=== PATIENT | female | born 1990 | race Caucasian/White ===

== ENCOUNTER 2019-07-02 16:19 | Emergency (ER) | payer SELFPAY ==
--- NOTE | 2019-07-02 20:12 | Event Note ---
ED Screening Note Date of service: 07/02/19 Time: 20:08 ED Screening Note: This is a 28 y.o. F. that presents to the ER with lower abdominal pain and vaginal discharge that started today. Patient is 11 weeks . RODEO RIDER about 07/20/19. LMP 04/12/2019, A2 miscarriage Denies vaginal bleeding, UTI symptoms, or back pain This initial assessment/diagnostic orders/clinical plan/treatment(s) is/are subject to change based on patients health status, clinical progression and re-assessment by fellow clinical providers in the ED. Further treatment and workup at subsequent clinical providers discretion. Patient/guardian urged not to elope from the ED as their condition may be serious if not clinically assessed and managed. Initial orders include: Labs OB US
[2019-07-02 21:19] LABS: Bilirubin,Urine NEG (Negative); Blood,Urine NEG (Negative); Color,Urine Yellow (Yellow); Mucus,Urine 1+ /HPF; Protein,Urine <15 mg/dL mg/dL (Negative)
[2019-07-02 21:20] LABS: HCG Qualitative,Urine Negative (Negative); WBC,Urine < 1.0 /HPF (0.0-6.0)
--- NOTE | 2019-07-02 21:22 | Ultrasound Report ---
US OB <= 14 weeks fetus INDICATION / CLINICAL INFORMATION: lower abdominal pain, 11 weeks . COMPARISON: None available. FINDINGS: Single, viable intrauterine , heart rate 160. [place]-rump length measures 42 mm, corresponding to a gestational age of 11 weeks 1 day Both ovaries appear unremarkable. No free fluid. IMPRESSION: 1. Single, viable 11 week 1 day intrauterine . Signer Name: Arben Enriquez MD Signed: 07/02/2019 9:18 PM Workstation Name: [id number]
[2019-07-02] MEDS ORDERED: ONDANSETRON 4 MG/2 ML INJ IV ONE (22:11)
[2019-07-02] MEDS ORDERED: ACETAMINOPHEN 500 MG TAB PO ONE (22:11)
[2019-07-02] MEDS ORDERED: SODIUM CHLORIDE 0.9% 1000 ML 1,000 ML IV ONE (22:11)
--- NOTE | 2019-07-02 22:14 | Emergency Department Report ---
ED Female HPI - General Chief complaint: Abdominal Pain Stated complaint: 11 WEEKS PREG/CRAMPING Time Seen by Provider: 07/02/19 20:08 Source: patient Mode of arrival: Ambulatory Limitations: No Limitations - History of Present Illness Initial comments: pt is a 28-year-old female presents emergency room with complaints of suprapubic abdominal cramping that began at 3 AM this morning. Patient states she is currently 11 weeks . States that she has nausea and a couple episodes of vomiting in the morning which she has had throughout her . She denies any change in frequency or duration of the nausea and vomiting. She is able to tolerate by mouth intake. She denies any vaginal bleeding, abnormal vaginal discharge, diarrhea, fever, urinary symptoms, vaginal itching, vaginal burning. She states that she has her first appointment with an MENTAL HEALTH COUNSELOR on July 20. She states she is currently taking a vitamin. She denies any past medical history or allergies medications. - Related Data Previous Rx's Medication Instructions Recorded Last Taken Type Acetaminophen [Acetaminophen ER 650 mg PO Q8HR PRN #14 tablet.er 07/02/19 Unknown Rx TAB] Ondansetron [Zofran Odt] 4 mg PO Q8HR PRN #7 tab.rapdis 07/02/19 Unknown Rx Allergies Allergy/AdvReac Type Severity Reaction Status Date / Time No Known Allergies Allergy Unverified 07/02/19 16:24 ED Review of Systems ROS: Stated complaint: 11 WEEKS PREG/CRAMPING Other details as noted in HPI Comment: All other systems reviewed and negative ED Past Medical Hx - Past Medical History Previous Medical History?: No - Surgical History Past Surgical History?: Yes Additional Surgical History: C section - Social History Smoking Status: Never Smoker Substance Use Type: None - Medications Home Medications: Home Medications Medication Instructions Recorded Confirmed Last Taken Type Acetaminophen [Acetaminophen ER 650 mg PO Q8HR PRN #14 tablet.er 07/02/19 Unknown Rx TAB] Ondansetron [Zofran Odt] 4 mg PO Q8HR PRN #7 tab.rapdis 07/02/19 Unknown Rx ED Physical Exam - General Limitations: No Limitations General appearance: alert, in no apparent distress - Head Head exam: Present: atraumatic, normocephalic - Eye Eye exam: Present: normal appearance - ENT ENT exam: Present: normal orophraynx, mucous membranes moist, other (cracked tooth in half present on the right lower jaw, no induration, no fluctuance, no facial swelling, uvula is midline, no uvular edema) - Respiratory Respiratory exam: Present: normal lung sounds bilaterally. Absent: respiratory distress, wheezes, rales, rhonchi, stridor, chest wall tenderness, accessory muscle use, decreased breath sounds, prolonged expiratory - Cardiovascular Cardiovascular Exam: Present: regular rate, normal rhythm, normal heart sounds. Absent: systolic murmur, diastolic murmur, rubs, gallop - GI/Abdominal GI/Abdominal exam: Present: soft, normal bowel sounds. Absent: distended, tenderness, guarding, rebound, rigid - Back Exam Back exam: Absent: CVA tenderness (R), CVA tenderness (L) - Neurological Exam Neurological exam: Present: alert, oriented X3 - Psychiatric Psychiatric exam: Present: normal affect, normal mood - Skin Skin exam: Present: warm, dry, intact ED Course Vital Signs 07/02/19 07/02/19 07/02/19 20:07 22:31 23:30 Temperature 97.7 F Pulse Rate 95 H Respiratory 18 17 173 H Rate Blood Pressure 140/78 Blood Pressure [Left] O2 Sat by Pulse 100 100 Oximetry 07/03/19 00:00 Temperature 98.5 F Pulse Rate 76 Respiratory 18 Rate Blood Pressure Blood Pressure 128/78 [Left] O2 Sat by Pulse 100 Oximetry ED Medical Decision Making - Radiology Data Radiology results: report reviewed US OB <= 14 weeks fetus INDICATION / CLINICAL INFORMATION: lower abdominal pain, 11 weeks . COMPARISON: None available. FINDINGS: Single, viable intrauterine , heart rate 160. [place]-rump length measures 42 mm, corresponding to a gestational age of 11 weeks 1 day Both ovaries appear unremarkable. No free fluid. IMPRESSION: 1. Single, viable 11 week 1 day intrauterine . Signer Name: Arben Enriquez MD Signed: 07/02/2019 9:18 PM Workstation Name: [id number] Transcribed By: TM Dictated By: Arben Enriquez MD Electronically Authenticated By: Arben Enriquez MD Signed Date/Time: 07/02/192117 - Medical Decision Making pt is a 28-year-old female presents emergency room with complaints of suprapubic abdominal cramping that began at 3 AM this morning. Patient states she is cur rently 11 weeks . States that she has nausea and a couple episodes of vomiting in the morning which she has had throughout her . She denies any change in frequency or duration of the nausea and vomiting. She is able to tolerate by mouth intake. She denies any vaginal bleeding, abnormal vaginal discharge, diarrhea, fever, urinary symptoms, vaginal itching, vaginal burning. She states that she has her first appointment with an MENTAL HEALTH COUNSELOR on July 20. She states she is currently taking a vitamin. She denies any past medical history or allergies medications. VSS. on exam: No abdominal tenderness or CVA tenderness. UA without evidence of UTI. OB US shows: 1. Single, viable 11 week 1 day intrauterine . Patient given IV fluids, Tylenol, Zofran and patient states that she was feeling much better. Patient states that she has also had a left lower toothache for a couple months. on exam: cracked tooth in half present on the right lower jaw, no induration, no fluctuance, no facial swelling, uvula is midline, no uvular edema, no signs of dental abscess, advised patient to see a dentist, discussed with patient that she can take Tylenol [id number] for discomfort. Patient given prescription for Tylenol and Zofran to take as needed. advised pt to please take medication as prescribed as needed. Increase your water intake over the next several days. Please continue taking your vitamin [id number]. Follow-up with an MENTAL HEALTH COUNSELOR in the next 2-3 days. Return to the emergency room for any new or worsening symptoms. - Differential Diagnosis IUP, ectopic, UTI, placenta abruption, subchorionic hemorrhage Critical care attestation.: If time is entered above; I have spent that time in minutes in the direct care of this critically ill patient, excluding procedure time. ED Disposition Clinical Impression: Suprapubic cramping, Morning sickness, Toothache, Cracked tooth Disposition: -01 TO HOME OR SELFCARE Is pt being admited?: No Does the pt Need Aspirin: No Condition: Stable Instructions: Morning Sickness (ED), Abdominal Pain in (ED), Toothache (ED) Additional Instructions: Please take medication as prescribed as needed. Increase your water intake over the next several days. Please continue taking your vitamin [id number]. Follow-up with an MENTAL HEALTH COUNSELOR in the next 2-3 days. Return to the emergency room for any new or worsening symptoms. Prescriptions: Acetaminophen [Acetaminophen ER TAB] 650 mg PO Q8HR PRN #14 tablet.er PRN Reason: pain Ondansetron [Zofran Odt] 4 mg PO Q8HR PRN #7 tab.rapdis PRN Reason: Nausea And Vomiting Referrals: SHANDRA BIRD MD [Staff Physician] - 2-3 Days [facility] [Provider Group] - 2-3 Days Time of Disposition: 23:23 Print Language: ITALIAN
[2019-07-03 00:50] VITALS: BP 128/78
== END 2019-07-03 | disposition home or self-care (01) ==
LOC: ED 16:19
DX: R10.9 Unspecified abdominal pain (principal); O21.8 Other vomiting complicating pregnancy; O26.891 Other specified pregnancy related conditions, first trimester; K08.89 Other specified disorders of teeth and supporting structures; K03.81 Cracked tooth; Z98.890 Other specified postprocedural states; Z79.899 Other long term (current) drug therapy; Z3A.11 11 weeks gestation of pregnancy
CPT/HCPCS: 36415; 76801; 81001; 81025; 84702; 96361; 96374; 99284; J2405; J7030

== ENCOUNTER 2019-07-08 21:33 | Emergency (ER) | payer SELFPAY ==
--- NOTE | 2019-07-08 21:48 | Event Note ---
ED Screening Note ED Screening Note: vaginal bleeding began today no abd pain no N/v/D no fever 12 weeks /P:2/A:2 PMHx none no allergies to meds This initial assessment/diagnostic orders/clinical plan/treatment(s) is/are subject to change based on patients health status, clinical progression and re- assessment by fellow clinical providers in the ED. Further treatment and workup at subsequent clinical providers discretion. Patient/guardian urged not to elope from the ED as their condition may be serious if not clinically assessed and managed. Initial orders include: labs, UA, US OB
--- NOTE | 2019-07-08 22:22 | Emergency Department Report ---
ED Female HPI - General Chief complaint: Vaginal Bleeding Stated complaint: VAGINAL BLEEDING, 11 WEKS PREG Time Seen by Provider: 07/08/19 21:47 Source: patient Mode of arrival: Ambulatory Limitations: No Limitations - History of Present Illness Initial comments: Mrs. Martinez is a very pleasant 28-year-old female who is currently 12 weeks 3 days according to estimated due date 01/17/2020. She has been receiving regular care at outside clinic. She's had a normal ultrasound during this . 30 minutes prior to arrival she developed vaginal spotting with mild pelvic pressure. She's had 2 previous miscarriages. Sudden onset of symptoms noticed while she was taking shower. Denies fever. Denies abdominal pain. Denies vomiting. MD Complaint: vaginal bleeding -: Sudden, minutes(s) (30) Severity: mild Severity scale (0 -10): 3 Quality: other (pelvic pressure) Consistency: constant Improves with: none Worsens with: none Are you Now?: Yes Associated Symptoms: denies other symptoms - Related Data Previous Rx's Medication Instructions Recorded Last Taken Type Acetaminophen [Acetaminophen ER 650 mg PO Q8HR PRN #14 tablet.er 07/02/19 Unknown Rx TAB] Ondansetron [Zofran Odt] 4 mg PO Q8HR PRN #7 tab.rapdis 07/02/19 Unknown Rx Allergies Allergy/AdvReac Type Severity Reaction Status Date / Time No Known Allergies Allergy Unverified 07/02/19 16:24 ED Review of Systems ROS: Stated complaint: VAGINAL BLEEDING, 11 WEKS PREG Other details as noted in HPI Comment: All other systems reviewed and negative Constitutional: denies: fever, malaise Gastrointestinal: denies: abdominal pain, nausea, vomiting Genitourinary: other (vaginal spotting) Musculoskeletal: denies: back pain ED Past Medical Hx - Past Medical History Previous Medical History?: No - Surgical History Past Surgical History?: Yes Additional Surgical History: C section X 2 - Social History Smoking Status: Never Smoker Substance Use Type: None - Medications Home Medications: Home Medications Medication Instructions Recorded Confirmed Last Taken Type Acetaminophen [Acetaminophen ER 650 mg PO Q8HR PRN #14 tablet.er 07/02/19 Unknown Rx TAB] Ondansetron [Zofran Odt] 4 mg PO Q8HR PRN #7 tab.rapdis 07/02/19 Unknown Rx ED Physical Exam - General Limitations: No Limitations General appearance: alert, in no apparent distress - Head Head exam: Present: atraumatic, normocephalic - Eye Eye exam: Present: normal appearance - ENT ENT exam: Present: mucous membranes moist - Neck Neck exam: Present: normal inspection, full ROM - Respiratory Respiratory exam: Present: normal lung sounds bilaterally. Absent: respiratory distress, wheezes, rales, rhonchi - Cardiovascular Cardiovascular Exam: Present: regular rate, normal rhythm, normal heart sounds. Absent: systolic murmur, diastolic murmur, rubs, gallop - GI/Abdominal GI/Abdominal exam: Present: soft, normal bowel sounds. Absent: distended, te nderness, guarding, rebound - Extremities Exam Extremities exam: Present: normal inspection - Neurological Exam Neurological exam: Present: alert, oriented X3 - Psychiatric Psychiatric exam: Present: normal affect, normal mood - Skin Skin exam: Present: warm, dry, intact, normal color. Absent: rash ED Course Vital Signs 07/08/19 07/08/19 21:37 21:48 Temperature 98.3 F 98.8 F Pulse Rate 102 H Respiratory 18 Rate Blood Pressure 134/78 O2 Sat by Pulse 96 Oximetry ED Medical Decision Making - Lab Data Result diagrams: 07/08/19 21:58 Laboratory Results - last 24 hr 07/08/19 07/08/19 07/08/19 21:58 21:58 21:58 WBC 11.3 H RBC 4.50 Hgb 12.3 Hct 37.5 MCV 83 MCH 28 MCHC 33 RDW 14.9 Plt Count 245 HCG, Quant 42082 H Blood Type O POSITIVE - Radiology Data Radiology results: report reviewed Ultrasound reveals viable intrauterine 12 weeks 1 day - Medical Decision Making Intrauterine confirmed viable on ultrasound. Rh Positive. Patient given reassurance and return precautions. Critical care attestation.: If time is entered above; I have spent that time in minutes in the direct care of this critically ill patient, excluding procedure time. ED Disposition Clinical Impression: Threatened miscarriage Disposition: DC-01 TO HOME OR SELFCARE Is pt being admited?: No Does the pt Need Aspirin: No Condition: Fair Instructions: Threatened Miscarriage (ED)
[2019-07-08 22:23] LABS: Hematocrit 37.5 % (30.3-42.9); Hemoglobin 12.3 gm/dl (10.1-14.3); Mean Corpuscular HGB Conc 33 % (30-34); Mean Corpuscular Volume 83 fl (79-97); Platelet Count 245 K/mm3 (140-440); Red Cell Distribution Width 14.9 % (13.2-15.2)
--- NOTE | 2019-07-08 23:33 | Ultrasound Report ---
ULTRASOUND OBSTETRIC INDICATION / CLINICAL INFORMATION: , vaginal bleeding. Clinical Gestational Age (GA): 12 weeks 3 days TECHNIQUE: Transabdominal. COMPARISON: Pelvic ultrasound 07/02/2019 FINDINGS: GESTATIONAL SAC: Well-defined oval shape and intrauterine in location. EMBRYO/FETUS: No significant abnormality. - [place]-Rump Length = 5.59 cm = 12 weeks, 1 day(s). - Heart Rate, beats per minute (if present) = 152 ADNEXA: No significant abnormality. FREE FLUID: None. ADDITIONAL FINDINGS: None. IMPRESSION: 1. Single, living intrauterine with estimated sonographic age of 12 weeks, 1 day(s) based o n [place]-rump length. Signer Name: Alistair Romero MD Signed: 07/08/2019 11:28 PM Workstation Name: [id number]
[2019-07-09 00:20] LABS: Bilirubin,Urine NEG (Negative); Blood,Urine LG (Negative); Color,Urine Yellow (Yellow); Hyaline Casts,Urine 3 /LPF; Mucus,Urine 3+ /HPF
[2019-07-09 00:59] VITALS: BP 127/72
== END 2019-07-09 01:00 | disposition home or self-care (01) ==
LOC: ED 21:33
DX: O20.0 Threatened abortion (principal); Z3A.12 12 weeks gestation of pregnancy
CPT/HCPCS: 36415; 76801; 81001; 84702; 85027; 86900; 86901

== ENCOUNTER 2019-08-23 22:29 | Emergency (ER) | payer MEDICAID ==
[2019-08-23 22:44] VITALS: BP 114/63
[2019-08-24 00:05] LABS: Basophils % (Auto) 0.3 % (0.0-1.8); Eosinophils # (Auto) 0.1 K/mm3 (0.0-0.4); Eosinophils % (Auto) 0.9 % (0.0-4.3); Hematocrit 34.9 % (30.3-42.9); Hemoglobin 11.8 gm/dl (10.1-14.3); Lymphocytes % (Auto) 20.2 % (13.4-35.0); Mean Corpuscular HGB Conc 34 % (30-34); Mean Corpuscular Volume 84 fl (79-97); Monocytes # (Auto) 0.7 K/mm3 (0.0-0.8); Monocytes % (Auto) 7.3 % (0.0-7.3); Platelet Count 282 K/mm3 (140-440); Red Blood Count 4.16 M/mm3 (3.65-5.03); Red Cell Distribution Width 14.5 % (13.2-15.2)
--- NOTE | 2019-08-24 01:21 | Ultrasound Report ---
ULTRASOUND OBSTETRIC, 08/24/2019 CLINICAL INFORMATION/INDICATION: Abdominal pain and cramping in . COMPARISON: Obstetrical ultrasound, 07/08/2019 FINDINGS: There is a single intrauterine . BPD = 4.1 cm = 18 weeks, 4 day(s). Head circumference = 15.2 cm = 18 weeks, 1 day(s). Abdominal circumference = 12.8 cm = 18 weeks, 2 day(s). Femur length = 2.7 cm = 18 weeks, 2 day(s). Overall estimated sonographic age = 18 weeks, 2 day(s). heart rate is 165 beats per minute. position is cephalic. Placenta is right lateral and grade 0 . Amniotic fluid volume appears within normal limits. Impression: 1. Single living intrauterine with estimated sonographic age of 18 weeks, 2 day(s). Signer Name: Robyn Jones MD Signed: 08/24/2019 1:16 AM Workstation Name: [id number]
[2019-08-24 02:28] LABS: Bilirubin,Urine NEG (Negative); Blood,Urine NEG (Negative); Calcium Oxalate Crystals,Urine 3+; Color,Urine Yellow (Yellow); Mucus,Urine 3+ /HPF; Protein,Urine <15 mg/dL mg/dL (Negative); Urobilinogen,Urine < 2.0 mg/dL (<2.0)
== END 2019-08-24 03:30 | disposition left against medical advice (07) ==
LOC: ED 22:29
DX: O26.892 Other specified pregnancy related conditions, second trimester (principal); R10.2 Pelvic and perineal pain; Z53.21 Procedure and treatment not carried out due to patient leaving prior to being seen by health care provider; Z3A.18 18 weeks gestation of pregnancy
CPT/HCPCS: 36415; 76805; 81001; 84702; 85025

== ENCOUNTER 2019-11-16 22:09 | Outpatient (CLI) | payer MEDICAID ==
[2019-11-16 22:47] VITALS: BP 101/51
[2019-11-16] MEDS ORDERED: LACTATED RINGERS 500 ML IV ONE (23:00)
== END 2019-11-17 00:20 | disposition home or self-care (01) ==
LOC: TRG 22:09
PROVIDERS: ATTEND Obstetrics & Gynecology
DX: O26.893 Other specified pregnancy related conditions, third trimester (principal); Z3A.31 31 weeks gestation of pregnancy

== ENCOUNTER 2020-01-10 09:26 | Inpatient (IN) | payer MEDICAID ==
--- NOTE | 2020-01-10 09:57 | History and Physical Report ---
History of Present Illness Date of examination: 01/10/20 Date of admission: 01/10/20 09:26 Chief complaint: Repeat Section History of present illness: 29yo at 39+0/7 weeks witH EDC 01/17/20 by LNMP presents for ERCS. previous hx of c/sectionx2 declines [facility] Past History Past Medical History: no pertinent history Past Surgical History: section Family/Genetic History: none Social history: no significant social history - Obstetrical History : 5 Medications and Allergies Allergies Allergy/AdvReac Type Severity Reaction Status Date / Time No Known Allergies Allergy Verified 11/16/19 22:48 Home Medications Medication Instructions Recorded Confirmed Last Taken Type Acetaminophen [Acetaminophen ER 650 mg PO Q8HR PRN #14 tablet.er 07/02/19 Unknown Rx TAB] Ondansetron [Zofran Odt] 4 mg PO Q8HR PRN #7 tab.rapdis 07/02/19 Unknown Rx Active Meds: Active Medications Citric Acid/Sodium Citrate (Bicitra) 30 ml PO ONCE ONE Stop: 01/10/20 09:52 Famotidine (Pepcid) 20 mg IV ONCE ONE Stop: 01/10/20 09:52 Oxytocin/Sodium Chloride (Pitocin/Ns 20 Unit/1000ml Drip) 20 units in 1,000 mls @ 0 mls/hr IV TITR KIET Lactated Ringer's (Lactated Ringers) 1,000 mls @ 2,250 mls/hr IV PREOP KIET Stop: 01/11/20 10:27 Cefazolin Sodium (Ancef/Sterile Water 2 Gm/20 Ml) 2 gm in 20 mls @ 80 mls/hr IV PREOP NR; Protocol Metoclopramide HCl (Reglan) 10 mg IV ONCE ONE Stop: 01/10/20 09:52 Results Result Diagrams: 01/10/20 10:05 All other labs normal. Assessment and Plan Repeat Section at term Plan: NPO, bail bondsman to OR for procedure informed consent obtained Joe KNIGHT
[2020-01-10] MEDS ORDERED: OXYTOCIN 20 UNIT/1000ML DRIP 20 UNITS/1,000 ML BAG IV SCH ×2 (10:00→14:00)
[2020-01-10] MEDS ORDERED: ceFAZolin/Water 2 GM/20 ML 2 GM/20 ML SYRINGE IV NR (10:00)
[2020-01-10] MEDS ORDERED: FAMOTIDINE 20 MG/2 ML INJ IV NR (10:00)
[2020-01-10] MEDS ORDERED: BICITRA ORAL LIQD 30ML PO NR (10:00)
[2020-01-10] MEDS ORDERED: METOCLOPRAMIDE 10 MG/2 ML INJ IV NR (10:00)
[2020-01-10 10:20] LABS: Basophils % (Auto) 0.3 % (0.0-1.8); Eosinophils % (Auto) 0.5 % (0.0-4.3); Hemoglobin 10.5 gm/dl (10.1-14.3); Lymphocytes # (Auto) 1.7 K/mm3 (1.2-5.4); Lymphocytes % (Auto) 20.5 % (13.4-35.0); Mean Corpuscular HGB Conc 32 % (30-34); Mean Corpuscular Volume 75 fl (79-97); Monocytes # (Auto) 0.7 K/mm3 (0.0-0.8); Platelet Count 271 K/mm3 (140-440); Red Blood Count 4.41 M/mm3 (3.65-5.03)
[2020-01-10] MEDS: LACTATED RINGERS 1,000 ML IV SCH (10:41)
[2020-01-10] MEDS ORDERED: dexAMETHasone 20 MG/5 ML VIAL ONE (12:01)
[2020-01-10] MEDS ORDERED: SODIUM CHLORIDE 0.9% 100 ML ONE (12:01)
[2020-01-10] MEDS ORDERED: DEXMEDETOMIDINE 200 MCG/2 ML VIAL IV ONE (12:01)
[2020-01-10] MEDS ORDERED: KETOROLAC 30 MG/1 ML INJ ONE (12:01)
[2020-01-10] MEDS ORDERED: ONDANSETRON 4 MG/2 ML INJ ONE (12:01)
[2020-01-10] MEDS ORDERED: BUPIVACAINE/PF (0.5%) 5 MG/1 ML 30 ML VIAL INFILTRATI ONE (12:01)
[2020-01-10] MEDS ORDERED: PHENYLEPHRINE 10 MG/1 ML INJ SDV ONE (12:01)
[2020-01-10] MEDS ORDERED: SODIUM CHLORIDE 0.9% IRR 1,500 ML BOTTLE IR ONE (12:05)
[2020-01-10] MEDS ORDERED: WATER FOR IRRIG STERILE 1,500 ML BOTTLE IR ONE (12:05)
--- NOTE | 2020-01-10 13:14 | Procedure Note ---
OB Delivery Note - Delivery Date of Delivery: 01/10/20 Surgeon: SANA VILLANUEVA Estimated blood loss: 500cc - Section Postop diagnosis: same section procedure: repeat low transverse Disposition: PACU Complications: other (dense pelvic adhesons) Narrative: Preoperative diagnosis: Repeat Section Postoperative diagnosis: same Procedure: Repeat low transverse Section via pfannenstiel incision Surgeon : Dr Sana Villanueva Assist: scrub Anesthesia: spinal Complications: none Drains: johnson to gravity EBL 500ml IV fluids: 1000ml Urine output: 50ml Findings:normal uterus, tubes and ovaries bilaterally. Viable male,weight 3115gms, 8,9. Procedure: informed consent taken in OB triage with family present. All questions and concerns addressed. R/B/C reviewed. She was taken to the OR where excellent spinal anesthesia was given. She was placed in the dorsal supine position with a leftward tilt. She was prepped and draped in a sterile fashion. A time out was verified. An Melina clamp was used to assure adequate analgesia. A Pfannenstiel skin incision was made, taken down through the underlying fascia sharply and extended laterally with curved Rivera scissors. The superior and inferior aspect of the fascial incision was grasped with Elisabeth clamps and the rectus muscles dissected off sharply. The abdomen was entered sharply in the midline and extended laterally and inferiorly sharply with good visualization of the underlying structures. The vesicouterine peritoneum was grasped with Italian forceps and incised sharply with Metzenbaum scissors and extended laterlaly sharply. The uterine incision was made sharply with a scalpel, taken down to the amnion and extended inferiorly and superiorly bluntly. The bladder blade removed. Baby delivered atraumatically in cephalic presentation, no nuchal cord. Spontaneous cry at delivery.The cord was clamped and cut and baby handed to waiting NICU staff. An intact placenta with three vessel cord delivered manually. The uterus cleared of all clots and debris. The uterine incision was closed with 3 layers of 0-Vicryl. A procoagulant was used prior to closure of the peritoneum. The peritoneum was closed with 3-0 vicryl. The rectus muscles approximated with 3-0 vicryl with good hemostasis. The fascia closed with 0-Vicr yl in the usual fashion, and the underlying structures closed with interrupted suture of O-Vicryl. The skin closed with monocryl and a pressure dressing applied. Mom and baby stable to . Patient hemodynamically stable in PACU. EBL 500ml Joe KNIGHT - A Gender: Male (weight 3115gms)
[2020-01-10] MEDS ORDERED: PROMETHAZINE 25 MG RECT SUPP PR PRN (14:00)
[2020-01-10] MEDS ORDERED: MORPHINE 2 MG/1 ML INJ IV PRN (14:00)
[2020-01-10] MEDS ORDERED: WITCH HAZEL/ GLYCERIN PAD TP PRN (14:00)
[2020-01-10] MEDS ORDERED: ONDANSETRON 4 MG/2 ML INJ IV PRN (14:00)
[2020-01-10] MEDS ORDERED: LANOLIN/ZINC/DIMETHICONE (LANSINOH) 7 GM TP PRN (14:00)
[2020-01-10] MEDS ORDERED: ACETAMINOPHEN 325 MG TAB PO PRN (14:00)
[2020-01-10] MEDS ORDERED: NALOXONE 0.4 MG/1 ML INJ IV PRN (14:00)
--- NOTE | 2020-01-10 14:33 | Anesthesia Consultation ---
Anesthesia Consult and Med Hx Date of service: 01/10/20 - Airway Anesthetic Teeth Evaluation: Good ROM Head & Neck: Adequate Mental/Hyoid Distance: Adequate Mallampati Class: Class II Intubation Access Assessment: Probably Good - Pulmonary Exam CTA: Yes - Cardiac Exam Cardiac Exam: RRR - Pre-Operative Health Status ASA Pre-Surgery Classification: ASA3 Proposed Anesthetic Plan: Spinal - Pulmonary Hx Asthma: Yes - Cardiovascular System Hx Hypertension: No - Central Nervous System Hx Seizures: No Hx Psychiatric Problems: No - Endocrine Hx Renal Disease: No Hx Hypothyroidism: No Hx Hyperthyroidism: No - Hematic Hx Anemia: Yes Hx Sickle Cell Disease: No - Other Systems Hx Alcohol Use: No Hx Obesity: Yes
--- NOTE | 2020-01-10 14:34 | Post Anesthesia Evaluation ---
- Post Anesthesia Evaluation Patient Participated: Yes Airway Patent: Yes Stable Respiratory Function: Yes Nausea/Vomiting: No Temp > 96.8F: Yes Pain Manageable: Yes Adequeate Hydration: Yes Anesthesia Complications: No Block Receding Appropriately: Yes
--- NOTE | 2020-01-10 14:34 | Anesthesia Day of Surgery ---
Anesthesia Day of Surgery - Day of Surgery Patient Examined: Yes Patient H&P Reviewed: Yes Patient is NPO: Yes
[2020-01-10] MEDS: MORPHINE 4 MG/1 ML INJ IV PRN (21:46)
[2020-01-10] MEDS ORDERED: MAGNESIUM HYDROXIDE (MOM) ORAL LIQD UDC PO PRN (22:00)
[2020-01-11 00:47] LABS: Hematocrit 30.2 % (30.3-42.9); Hemoglobin 9.4 gm/dl (10.1-14.3)
[2020-01-11] MEDS: LACTATED RINGERS 1,000 ML IV SCH (01:15)
[2020-01-11] MEDS: MORPHINE 4 MG/1 ML INJ IV PRN (04:07)
[2020-01-11] MEDS: FERROUS SULFATE 325 MG TAB PO SCH ×2 (10:15→21:59)
[2020-01-11] MEDS: HYDROcodone/ACETAMINOPHEN 5-325 MG TAB PO PRN ×2 (13:46→20:01)
[2020-01-11] MEDS: IBUPROFEN 800 MG TAB PO PRN (22:00)
[2020-01-12] MEDS: HYDROcodone/ACETAMINOPHEN 5-325 MG TAB PO PRN ×2 (07:30→18:19)
--- NOTE | 2020-01-12 11:16 | Progress Note ---
Assessment and Plan A: /postop day 2 S/P repeat LTCS. Anemia. P: Encouraged ambulation. Continue iron supplementation. Continue current management. Subjective - Subjective Date of service: 01/12/20 Principal diagnosis: /postop day 2 S/P repeat LTCS Interval history: /postop day 2 S/P repeat LTSC. No complaints. Voiding without difficulty, ambulating well, passing gas, tolerating a reglar diet. Patient reports: appetite normal, voiding normally, pain well controlled, flatus, ambulating normally, no dizzy ambulation, no nauseated [place]: doing well Objective - Vital Signs Latest vital signs: Vital Signs Temp Pulse Resp BP Pulse Ox 01/12/20 07:19 97.9 F 78 20 102/64 96 01/11/20 23:43 98.2 F 90 20 97/48 93 01/11/20 17:33 98.3 F 104 H 18 104/55 97 Intake and Output 01/11/20 01/12/20 01/12/20 23:59 07:59 15:59 Intake Total 240 240 120 Balance 240 240 120 Intake: Oral 120 Intake, Free Water 240 240 Other: Total, Intake Amount 120 # Voids Indwelling Catheter 1 1 Void 1 - Exam Abdomen: Present: normal appearance, soft, normal bowel sounds. Absent: distention, tenderness, guarding, rigidity Uterus: Present: normal, firm, fundal height below umbilicus. Absent: bogginess, tenderness Extremities: Present: normal. Absent: tenderness, edema Incision: Present: normal, dry, dressed
[2020-01-12] MEDS: IBUPROFEN 800 MG TAB PO PRN ×2 (12:45→21:50)
[2020-01-12] MEDS: FERROUS SULFATE 325 MG TAB PO SCH ×2 (18:11→21:50)
[2020-01-13] MEDS: IBUPROFEN 800 MG TAB PO PRN (05:37)
--- NOTE | 2020-01-13 09:41 | Progress Note ---
Assessment and Plan A: /postop day 3 S/P repeat LTCS. Anemia. P: Discharge patient home today. Discussed with patient /postop discharge instructions and warning signs. Activity restrictions and care of incision discussed with patient. Advised patient to avoid intercourse, lifting, housework, driving, tub baths (patient may take showers). Advised patient to continue taking iron supplements and vitamins at home. Advised patient to follow up at [facility] office in 1 week for incision check. Patient voiced understanding of all instructions. Subjective - Subjective Date of service: 01/13/20 Principal diagnosis: /postop day 3 S/P repeat LTCS Interval history: /postop day 3 S/P repeat LTSC. No complaints. Voiding without difficulty, ambulating well, passing gas, tolerating a reglar diet. Patient desires discharge today. Patient denies headache, cough, chest pain, leg pain, heavy bleeding, or any other problems. Patient reports: appetite normal, voiding normally, pain well controlled, flatus, ambulating normally, no dizzy ambulation, no nauseated : doing well Objective - Vital Signs Latest vital signs: Vital Signs Temp Pulse Resp BP BP Pulse Ox 01/13/20 08:35 96/59 01/13/20 08:13 98.1 F 86 18 97/50 96 01/12/20 23:30 98.2 F 86 20 104/61 97 01/12/20 15:45 98.5 F 82 16 92/52 97 Intake and Output 01/12/20 01/13/20 01/13/20 23:59 07:59 15:59 Intake Total 480 Balance 480 Intake: Oral 480 Other: Total, Intake Amount 240 # Voids Void 1 - Exam Cardiovascular: Present: Regular rate, Normal S1, Normal S2, No murmurs Lungs: Present: Clear to auscultation Abdomen: Present: normal appearance, soft, normal bowel sounds. Absent: distention, tenderness, guarding, rigidity Uterus: Present: normal, firm, fundal height below umbilicus. Absent: bogginess Extremities: Present: normal. Absent: tenderness, edema Incision: Present: normal, dry, intact
--- NOTE | 2020-01-13 09:47 | Discharge Summary ---
Providers - Providers Date of Admission: 01/10/20 09:26 Date of discharge: 01/13/20 Attending physician: SANA VILLANUEVA MD Primary care physician: SANA VILLANUEVA MD Hospitalization Reason for admission: section Delivery: Procedure: repeat low transverse Incision: normal, dry, intact complications: none Discharge diagnosis: IUP at term delivered baby: male Pertinent studies: Labs Hospital course: Normal hospital course. Condition at discharge: Good Disposition: DC-01 TO HOME OR SELFCARE - Discharge Diagnoses (1) Term delivered Status: Acute (2) Anemia Status: Acute Plan - Provider Discharge Summary Activity: routine, no sex for 6 weeks, no heavy lifting 4 weeks, no strenuous exercise Diet: routine Instructions: routine Additional instructions: Please continue to take your vitamins and iron supplements at home. Call your doctor immediately for: * Fever > 100.5 * Heavy vaginal bleeding ( >1 pad per hour) * Severe persistent headache * Shortness of breath * Reddened, hot, painful area to leg or breast * Drainage or odor from incision. * Keep incision clean and dry at all times and follow doctor's instructions regarding bathing/showering - Follow up plan Follow up: SANA VILLANUEVA MD [Primary Care Provider] - 7 Days
[2020-01-13] MEDS: FERROUS SULFATE 325 MG TAB PO SCH (09:49)
[2020-01-13] MEDS: HYDROcodone/ACETAMINOPHEN 5-325 MG TAB PO PRN (09:55)
[2020-01-13 12:32] VITALS: BP 114/51
== END 2020-01-13 13:00 | disposition home or self-care (01) | DRG 765 ==
LOC: APU 09:26 → OB 15:22
PROVIDERS: ADMIT Obstetrics & Gynecology; ATTEND Obstetrics & Gynecology
PROC: 10D00Z1 Extraction of Products of Conception, Low, Open Approach (ICD-10-PCS; principal; 2020-01-10)
DX: O34.211 Maternal care for low transverse scar from previous cesarean delivery (principal); D62 Acute posthemorrhagic anemia; O99.52 Diseases of the respiratory system complicating childbirth; O99.02 Anemia complicating childbirth; J45.909 Unspecified asthma, uncomplicated; O99.214 Obesity complicating childbirth; E66.9 Obesity, unspecified; Z3A.39 39 weeks gestation of pregnancy; Z37.0 Single live birth; Z79.899 Other long term (current) drug therapy
CPT/HCPCS: 36415; 85014; 85018; 85025; 86592; 86850; 86900; 86901; G0378; J0690; J1100; J1885; J2270; J2370; J2405; J2590; J2765; J3490; J7120